=== PATIENT | male | born 1965 | race Caucasian/White ===

== ENCOUNTER 2018-07-25 14:12 | Emergency (ER) | payer OTHER ==
[2018-07-25] MEDS ORDERED: IBUPROFEN 600 MG TABLET (FP) PO ONE ×2 (14:34→14:41)
[2018-07-25] MEDS ORDERED: LIDOCAINE 5% TOPICAL PATCH TP ONE (14:34)
[2018-07-25] MEDS ORDERED: CYCLOBENZAPRINE HCL 5 MG TABLET PO ONE (14:34)
[2018-07-25] MEDS ORDERED: LIDOCAINE 5% TOPICAL PATCH ONE (14:41)
[2018-07-25] MEDS ORDERED: CYCLOBENZAPRINE HCL 10 MG TABLET (FP) ONE (14:41)
[2018-07-25 14:43] VITALS: BP 164/100; PULSE 87; TEMP 98.2; BMI 28.0
--- NOTE | 2018-07-25 15:03 | PDOC ---
Documentation entered by Ron House SCRIBE, acting as scribe for Radha Mendez MD. Radha Mendze MD: This documentation has been prepared by the Harsh cespedes Daniel, SCRIBE, under my direction and personally reviewed by me in its entirety. I confirm that the documentation accurately reflects all work, treatment, procedures, and medical decision making performed by me. History of Present Illness - General Chief Complaint: Head/Neck problem Stated Complaint: STIFF NECK History Source: Patient Exam Limitations: No Limitations - History of Present Illness Initial Comments: 07/25/18 14:53 The patient is a 53 year old male with no past medical history here today for evaluation of left sided neck pain. Patient reports that his neck pain began yesterday after sleeping on a different bed with different pillows. He also admits to lifting weights recently this weekend. He describes his pain as a piercing throbbing sensation, states it is bilateral but more prominent on the left side of his neck, 2/2 turning his head and movement. Patient has tried motrin and heat massage alleviated his pain slightly. Patient denies headache, lightheadedness. Denies fever, chills. Denies chest pain, shortness of breath. Denies nausea, vomiting, diarrhea, abdominal pain. Denies neurological symptoms, confusion, paresthesias or weakness. no other trauma. Allergies: NKA 07/25/18 15:13 Past History - Past Medical History Allergies/Adverse Reactions: Allergies Allergy/AdvReac Type Severity Reaction Status Date / Time No Known Allergies Allergy Verified 07/25/18 14:13 Home Medications: Ambulatory Orders Cyclobenzaprine HCl [Flexeril 10 mg] 10 mg PO TID PRN #20 tablet 07/25/18 Ibuprofen [Motrin -] 400 mg PO PRN PRN 07/25/18 Lidocaine 5% Patch [Lidoderm Patch -] 1 patch TP DAILY #7 patch 07/25/18 Review of Systems - Review of Systems Able to Perform ROS?: Yes Comments:: 07/25/18 15:10 Constitutional: no fevers or chills. HEENT: no headache or dizziness.no visual or hearing disturbances. MUSCULOSKELETAL: +neck pain. No joint pain and swelling. no back pain Back: no back pain SKIN: no redness or skin changes, no discharge, no rash. No wounds. Hematologic: no easy bruising/bleeding. NEUROLOGIC: No weakness, numbness or tingling. Allergic/Immunologic: no allergies All other systems reviewed and negative, or as documented in HPI. 07/25/18 15:14 *Physical Exam - Vital Signs Last Vital Signs Temp Pulse Resp BP Pulse Ox 98.2 F 87 20 164/100 99 07/25/18 14:13 07/25/18 14:13 07/25/18 14:13 07/25/18 14:13 07/25/18 14:13 - Physical Exam Comments: 07/25/18 15:10 General: NAD, well appearing HEENT: NCAT, EOMI, PERRL Neck: supple, limited ROM 2/2 neck spasms. no midline cervical tenderness. + left sided paracervical and trapezius TTP, +spasms. Vascular: 2+ DP pulses symmetric and equal. Back: no midline tenderness, no stepoffs, FROM MSK: +left trapezius and paracervical tenderness and spasms. shoulder abduction/ adduction/flexion/extension and prox strength 5/5 actively against resistance. 5 /5 shoulder shrug strength. deltoid sensation intact; sensation grossly intact in median/radial/ulnar distribution. distal experimental mechanic electrical strength 5/5. 2+ radialis pulses bilaterally and symmetric. Neuro: alert, no focal neurologic deficits, clear speech. oriented appropriately. Skin: color normal color, warm and well perfused. Cap refill <2 sec. 07/25/18 15:14 ED Treatment Course - Medications Given in the ED: ED Medications Discontinued Medications Generic Name Dose Route Start Last Admin Trade Name Marva PRN Reason Stop Dose Admin Cyclobenzaprine HCl 10 mg 07/25/18 14:34 07/25/18 14:46 Cyclobenzaprine Hcl PO 07/25/18 14:35 10 mg ONCE ONE Administration Ibuprofen 600 mg 07/25/18 14:34 07/25/18 14:46 Motrin - PO 07/25/18 14:35 600 mg ONCE ONE Administration Lidocaine 1 patch 07/25/18 14:34 07/25/18 14:46 Lidoderm Patch - TP 07/25/18 14:35 1 patch ONCE ONE Administration Medical Decision Making - Medical Decision Making 07/25/18 15:16 History of physical examination as documented. Vital signs reviewed and within normal limits. Clinical examination is most consistent with neck spasms as he has paravertebral/cervical and trapezius muscle tenderness with associated spasms. He has had recent strenuous activity as well as positional changes with uncomfortable pillows in bed yesterday that may have incited his neck pain. No neurologic deficits, no headache or dizziness, no systemic or infectious symptoms. doubt dissection of vascular structures. This is most likely muscular skeletal etiology. Patient was advised supportive care and appropriate analgesia. Here he was given ibuprofen, Flexeril and topical Lidoderm patch will Rx the same medications expected management over the next 3-5 days and PCP follow-up as needed. 07/25/18 15:17 *DC/Admit/Observation/Transfer Diagnosis at time of Disposition: Cervical pain (neck), Muscle spasms of neck - Discharge Dispostion Disposition: HOME Condition at time of disposition: Good Decision to Admit order: No - Prescriptions Prescriptions: Cyclobenzaprine HCl [Flexeril 10 mg] 10 mg PO TID PRN #20 tablet PRN Reason: Muscle Spasms Lidocaine 5% Patch [Lidoderm Patch -] 1 patch TP DAILY #7 patch - Referrals Referrals: [facility] [Provider Group] [facility] [Provider Group] - Patient Instructions Printed Discharge Instructions: DI for Neck Pain, DI for Back Spasm Additional Instructions: you most likely have musculoskeletal strain/of your neck and spasms from position and straining avoid heavy lifting or strenuous activity to minimize further injury flexeril is a muscle relaxant, take three times a day as needed may cause sleepiness, do not drive or operate machinery or take with alcohol. topical lidoderm patch to the area affected, 12 hours on and 12 hours off.. May take ibuprofen 400-600mg and/or tylenol 650 to 975 mg every 6 hours as needed for mild to moderate pain, available over the counter. This does not require narcotics, as it will precipitate injuries and falls. continue with range of motion exercises, as this will facilitate the healing process; avoid being bed bound and immobile. RICE rest ice elevate the affected extremity Rest, Ice (20 minutes at a time, 3 times a day), Compression (LUDWIN wrap or splint ), Elevation (above the heart). Follow up with your primary care physician in 1 week if symptoms persist, or with orthopedics if needed. Follow up with primary doctor/specialist services provided as well. orthopedics referrals given. This should heal over the next 3-5 days. - Post Discharge Activity Forms/Work/School Notes: Back to Work
== END 2018-07-25 15:25 | disposition home or self-care (01) ==
LOC: FER 14:12
DX: M54.2 Cervicalgia (principal); M62.838 Other muscle spasm
CPT/HCPCS: 99282-25